=== PATIENT | male | born 1960 | race Caucasian/White ===

== ENCOUNTER 2017-07-12 08:00 | Day surgery (SDC) | payer OTHER ==
[~2017-07-12] VITALS: Ht 185.4 cm; Wt 110.4 kg
[~2017-07-12 08:00] MED LIST: Aspirin EC81 MG PO; CILO100 PO; CLOP75 PO; GABA600 PO; LOSA50 PO
== END 2017-07-12 10:05 | disposition home or self-care (01) ==
LOC: ORSCSDS 08:00
PROVIDERS: Internal Medicine Gastroenterology
PROC: 0DJD8ZZ Inspection of Lower Intestinal Tract, Via Natural or Artificial Opening Endoscopic (ICD-10-PCS; principal; 2017-07-12 09:00)
DX: Z12.11 Encounter for screening for malignant neoplasm of colon (principal); Z86.010 Personal history of colon polyps; K57.30 Diverticulosis of large intestine without perforation or abscess without bleeding; I10 Essential (primary) hypertension; B19.20 Unspecified viral hepatitis C without hepatic coma; Z87.891 Personal history of nicotine dependence; Z79.899 Other long term (current) drug therapy; Z79.82 Long term (current) use of aspirin
CPT/HCPCS: J0330; J1980; J2405

== ENCOUNTER 2018-03-10 15:34 | Emergency (ER) | payer OTHER ==
[~2018-03-10] VITALS: Ht 185.4 cm; Wt 93.0 kg
[2018-03-10] MEDS ORDERED: MELO7.5 PO (16:00)
[2018-03-10 17:31] LABS: BASOPHILS ABSOLUTE AUTO 0.04 K/mm3 (0.00-0.23); BASOPHILS PERCENT AUTO 0 % (0-2); EOSINOPHILS ABSOLUTE AUTO 0.03 K/mm3 (0.00-0.68); EOSINOPHILS PERCENT AUTO 0 % (0-6); Hematocrit 39.2 % (37.0-53.0); Hemoglobin 13.3 g/dL (13.5-17.5); IMMATURE GRAN ABSOLUTE AUTO 0.05 K/mm3 (0.00-0.10); IMMATURE GRAN PERCENT AUTO 1 % (0-1); LYMPHOCYTES ABSOLUTE AUTO 1.89 K/mm3 (0.84-5.20); LYMPHOCYTES PERCENT AUTO 19 % (21-46); MONOCYTES ABSOLUTE AUTO 0.94 K/mm3 (0.16-1.47); MONOCYTES PERCENT AUTO 9 % (4-13); Mean Corpuscular HGB 31.4 pg (26.0-34.0); Mean Corpuscular HGB Conc 33.9 g/dL (31.5-36.5); Mean Corpuscular Volume 93 fL (80-100); Mean Platelet Volume 9.4 fL (9.1-12.4); NEUTROPHILS ABSOLUTE AUTO 7.18 K/mm3 (1.96-9.15); NEUTROPHILS PERCENT AUTO 71 % (41-73); Platelet Count 295 K/mm3 (150-400); RDW Coefficient Variation 11.7 % (11.7-14.2); RDW Standard Deviation 39.7 fL (35.1-46.3); Red Blood Cell Count 4.23 M/mm3 (4.30-5.90); White Blood Cell Count 10.13 K/mm3 (4.00-11.30)
[2018-03-10 17:41] LABS: Alanine Aminotransfer (ALT/SGP 26 U/L (12-78); Albumin, Blood 3.7 g/dL (3.4-5.0); Albumin/Globulin Ratio 1.2 (0.8-1.8); Alk Phos 80 U/L (50-136); Anion Gap 6 mmol/L (6-16); Aspartate Aminotrans (AST/SGOT 15 U/L (12-37); Bilirubin, Total 0.5 mg/dL (0.1-1.0); Blood Urea Nitrogen 18 mg/dL (8-24); Bun/Creatinine Ratio 25.3 (12.0-20.0); CO2, Blood 26 mmol/L (21-32); Calcium, Blood 8.4 mg/dL (8.5-10.1); Chloride, Blood 103 mmol/L (98-108); Creatinine, Blood 0.71 mg/dL (0.60-1.20); Glomerular Filtration Rate >60 (60-); Glucose, Blood 144 mg/dL (70-99); Potassium, Blood 2.8 mmol/L (3.5-5.5); Sodium, Blood 135 mmol/L (136-145); Total Protein, Blood 6.7 g/dL (6.4-8.2)
[2018-03-10 18:01] LABS: Source, Urine Clean Catch
[2018-03-10 18:06] LABS: Appearance, Urine Clear (Clear); Blood, Urine 3+ (Neg); Color, Urine Yellow (P-Yellow); Glucose Qualitative, Urine Neg (Neg); Ketones, Urine 2+ (Neg); Leukocyte Esterase, Urine 1+ (Neg); Nitrite, Urine Neg (Neg); Protein, Urine 2+ (Neg); Urobilinogen, Urine 3+ (Normal)
[2018-03-10 18:36] LABS: Bilirubin, Urine 1+ (Neg)
[2018-03-10] MEDS ORDERED: K-Dur20 MEQ PO (18:36)
[2018-03-10 18:38] LABS: Red Blood Cells, Urine 0-2 /hpf (0-2); White Blood Cells, Urine 0-2 /hpf (0-5)
[2018-03-10 18:39] LABS: Bacteria Rare /hpf; Squamous Epithelial Cells Mod /hpf (Few)
== END 2018-03-10 18:50 | disposition home or self-care (01) ==
LOC: ER 15:34
PROVIDERS: Emergency Medicine
DX: H53.8 Other visual disturbances (principal); E87.6 Hypokalemia; Z79.899 Other long term (current) drug therapy; Z79.82 Long term (current) use of aspirin; Z79.01 Long term (current) use of anticoagulants
CPT/HCPCS: 36415; 80053; 81001; 83735; 85025; 87086; 93005; 93010; 99284-25

== ENCOUNTER 2020-05-10 12:33 | Emergency (ER) | payer OTHER ==
[~2020-05-10] VITALS: Ht 182.9 cm; Wt 95.2 kg
[~2020-05-10 12:33] MED LIST changes: +K-Dur20 MEQ PO; +MELO7.5 PO
== END 2020-05-10 17:50 | disposition home or self-care (01) ==
LOC: ER 12:33
DX: R60.0 Localized edema (principal); I10 Essential (primary) hypertension; Z79.82 Long term (current) use of aspirin; Z79.02 Long term (current) use of antithrombotics/antiplatelets; Z79.899 Other long term (current) drug therapy; Z87.891 Personal history of nicotine dependence
CPT/HCPCS: 93971; 99283-25

== ENCOUNTER → 2021-08-19 | Outpatient (CLI) | payer OTHER | LOC: LAB 11:40 → LAB SHORT 11:40 | DX: Z48.02 Encounter for removal of sutures (principal); L08.9 Local infection of the skin and subcutaneous tissue, unspecified | CPT/HCPCS: 87070; 87077; 87147; 87186; 87205 ==